=== PATIENT | female | born 1985 | race Caucasian/White ===

== ENCOUNTER 2018-01-12 08:32 | Outpatient (CLI) | payer OTHER | END 2018-01-12 16:11 | disposition home or self-care (01) | LOC: NST 08:32 | DX: O32.1XX0 Maternal care for breech presentation, not applicable or unspecified (principal); O33.8 Maternal care for disproportion of other origin; Z34.83 Encounter for supervision of other normal pregnancy, third trimester ==

== ENCOUNTER 2018-01-18 16:59 | Outpatient (CLI) | payer OTHER | END 2018-01-18 19:22 | disposition home or self-care (01) | LOC: NST 16:59 | DX: Z34.83 Encounter for supervision of other normal pregnancy, third trimester (principal) ==

== ENCOUNTER 2018-01-24 11:43 | Inpatient (IN) | payer OTHER ==
[~2018-01-24] VITALS: Ht 154.9 cm; Wt 93.0 kg
[2018-01-29] MEDS ORDERED: PERCOCET 5-3251 EACH PO (08:34)
[2018-01-30] MEDS ORDERED: OXYC1TAB9 PO (14:09)
[2018-01-30] MEDS ORDERED: NABUMETONE750 MG PO (14:09)
== END 2018-01-30 14:24 | disposition home or self-care (01) | DRG 766 ==
LOC: O/R 01-27 08:14 → LDR 01-27 09:30 → SURG-SUITE 01-27 15:22
PROC: 10D00Z1 Extraction of Products of Conception, Low, Open Approach (ICD-10-PCS; principal; 2018-01-28)
PROC: 10907ZC Drainage of Amniotic Fluid, Therapeutic from Products of Conception, Via Natural or Artificial Opening (ICD-10-PCS; 2018-01-28)
PROC: 3E033VJ Introduction of Other Hormone into Peripheral Vein, Percutaneous Approach (ICD-10-PCS; 2018-01-28)
PROC: 4A1HXCZ Monitoring of Products of Conception, Cardiac Rate, External Approach (ICD-10-PCS; 2018-01-28)
DX: O64.1XX0 Obstructed labor due to breech presentation, not applicable or unspecified (principal); Z3A.39 39 weeks gestation of pregnancy; Z37.0 Single live birth